=== PATIENT | female | born 1935 | race Caucasian/White ===

== ENCOUNTER 2022-11-09 13:17 | Emergency (ER) | payer OTHER ==
[2022-11-09 14:28] LABS: #Basophils 0.1 10x3/uL (0.0-0.2); #Eosinphils 0.1 10x3/uL (0.0-0.5); #Monocytes 0.9 10x3/uL (0.0-1.1); #Neutrophils 7.8 10x3/uL (1.5-8.4); %Basophils 0.7 % (0.0-2.0); %Eosinophils 0.6 % (0.0-6.0); %Lymphocytes 15.7 % (18.0-47.0); %Monocytes 8.4 % (0.0-10.0); %Neutrophils 74.1 % (40.0-75.0); Hemoglobin 13.5 g/dL (12.0-15.5); Mean Corpuscular HGB CONC 32.9 g/dL (32.0-36.0); Mean Corpuscular Volume 91.1 fl (81.6-98.3); Mean Platelet Volume 10.8 fl (7.4-10.4); Platelet Count 348 10x3/uL (150-450); RBC Distribution Width 13.3 % (11.5-14.5); White Blood Cell (WBC) Count 10.5 10x3/uL (3.5-10.5)
[2022-11-09 14:51] LABS: ALT (SGPT) 16 U/L (8-55); AST (SGOT) 21 U/L (5-34); Albumin 3.7 g/dL (3.4-4.8); Alkaline Phosphatase 63 U/L (40-110); Anion Gap 17 mmol/L (10-20); BUN (Urea Nitrogen) 19 mg/dL (9.8-20.1); Bilirubin, Total 0.4 mg/dL (0.2-1.2); Calc. Creatinine Clearance 0 mL/min (70-130); Calcium 8.8 mg/dL (7.8-10.44); Carbon Dioxide 24 mmol/L (23-31); Chloride 100 mmol/L (98-107); Estimated GFR 41; Globulin 2.3 g/dL (2.4-3.5); Glucose 208 mg/dL (83-110); Potassium 4.4 mmol/L (3.5-5.1); Sodium 137 mmol/L (136-145)
== END 2022-11-09 16:00 | disposition home or self-care (01) ==
LOC: CSHERS 13:17
DX: E86.0 Dehydration (principal); R05.9 Cough, unspecified; E11.9 Type 2 diabetes mellitus without complications; E78.00 Pure hypercholesterolemia, unspecified; I10 Essential (primary) hypertension; Z79.899 Other long term (current) drug therapy
CPT/HCPCS: 36415; 71045; 80053; 84484; 85025; 93005; 96360